=== PATIENT | male | born 1945 | race Caucasian/White ===

== ENCOUNTER 2025-08-29 08:30 | Emergency (ER) | payer OTHER, SELFPAY ==
--- OUTSIDE RECORDS SUMMARY | 2025-08-29 08:35 | XMS_ITS | Clinical Summary ---
Author Organization [facility] Address [address] [place] [address] Phone Care Team Providers Care Precipitator Supervisor Name Role Phone Provider, None Primary Care Provider Unavailabl e Allergies No known active allergies Social History Tobacco Use Types Packs/Day Years Used Date Smoking Tobacco: Former Smokeless Tobacco: Never Sex and Gender Information Value Date Recorded Sex Assigned at Not on file Legal Sex Male 10:57 PM CDT Gender Identity Not on file Sexual Orientation Not on file Last Filed Vital Signs Vital Sign Reading Time Taken Comments Blood Pressure 110/64 01/14/2021 9:39 AM CDT Pulse 70 01/14/2021 9:39 AM CDT Temperature 36.7 C (98 F) 01/14/2021 9:39 AM CDT Respiratory Rate 18 01/14/2021 9:39 AM CDT Oxygen Saturation 95% 01/14/2021 9:39 AM CDT Inhaled Oxygen Concentration - - Weight 102.1 kg (225 lb) 01/14/2021 9:39 AM CDT Height - - Body Mass Index - - Plan of Treatment Health Maintenance Due Date Last Done Comments Hepatitis C Virus (HCV) Screening 1945 TdaP Immunization 1945 Pneumococcal Immunization (5 0+ years) (1 of 1 - PCV) 1993 Zoster Immunization (1 of 2) 1993 Respiratory Syncytial Virus (RSV) Immunization (Adult) (1 - 1-dose 75+ series) 2018 Influenza Immunization (#1) 2025 SARS-COV-2 Immunization (3 - season) 2025 12/12/2021, 06/19/2021 Hepatitis B Immunization Aged Out No longer eligible based on patient's age to complete this topic Human Papillomavirus (HPV) Immunization Aged Out No longer eligible b ased on patient's age to complete this topic Meningococcal Immunization (ACWY) Aged Out No longer eligible b ased on patient's age to complete this topic Rotavirus Immunization Aged Out No lo nger eligible based on patient's age to complete this topic Insurance NETWORK Care Teams Precipitator Supervisor Relationship Specialty Start Date End Date Provider, Jim SMITH PCP - General 01/14/21
--- OUTSIDE RECORDS SUMMARY | 2025-08-29 08:35 | XMS_ITS | Clinical Summary ---
Author Organization [facility] Address [address] [place] [address] Care Team Providers Care Courtroom Deputy Name Role Phone Yohannes Robins MD Primary Care Provider [phone] Allergies Active Allergy Reactions Criticality Noted Date Comments Simvastatin Muscle pain Medium 10/12/2023 Medications fluticasone propionate (FLONASE) 50 mcg/actuation nasal sprayIndication s:Seasonal allergic rhinitis due to pollen Administer 2 sprays into each nostril daily 16 g 11 2 Active oxybutynin XL (DITROPAN-XL) 5 mg 24 hr tablet Take 1 tablet (5 mg total) by mouth daily Active ALPRAZolam (XANAX) 0.25 mg tablet Take 1 tablet (0.25 mg total) by mouth 3 (three) times a day as needed for anxiety Active artificial tears,hypromell ose, 0.3 % drops Administer 1 drop into affected eye(s) daily Active divalproex ER (DEPAKOTE ER) 500 mg 24 hr tablet Take 1 tablet (500 mg total) by mouth daily as needed (patient takes only as needed) Active tamsulosin (FLOMAX) 0.4 mg extended release capsule Take 1 capsule (0.4 mg total) by mouth daily with dinner 30 capsule 4 Active aspirin 81 mg enteric coated tablet Take 1 tablet (81 mg total) by mouth daily 30 tablet 4 Active traMADoL (ULTRAM) 50 mg tablet Take 1 tablet (50 mg total) by mouth every 6 (six) hours as needed for pain 20 tablet 4 Active metoprolol XL (TOPROL-XL) 25 mg extended release tablet Take 3 tablets (75 mg total) by mouth daily 270 tablet 3 4 Active atorvastatin (LIPITOR) 10 mg tablet Take 1 tablet (10 mg total) by mouth nightly 90 tablet 3 4 Active amLODIPine (NORVASC) 5 mg tablet Take 1 tablet (5 mg total) by mouth daily 90 tablet 3 4 Active Active Problems Problem Noted Date Diagnosed Date Syncope and collapse 06/06/2024 Overview (06/15/2024): Due to long pauses with multiple P waves but no QRS complexes. 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 Has a small pocket hematoma postprocedure and that is why Xarelto has been on hold. Assessment & Plan (06/29/2024 4:06 PM CDT): [facility] last week. He thought the pacemaker pocket area looked good and he restarted the patient back on Xarelto. It also looked good on my exam today so he can continue on Xarelto. He will follow-up with me as needed. Assessment & Plan (06/15/2024 3:46 PM CDT): No pain. No wound drainage. No fever. Before restarting Xarelto, let me see him back in 2 weeks. He is in sinus rhythm on my exam today anyway. On top of that, device remote check done just now did not show any atrial fibrillation. All numbers quite good with 16% RA a pacing and 0% RV pacing. Assessment & Plan (06/06/2024 2:40 PM CDT): Showed patient and daughter the long pause that occurred in the hospital. Today's device remote check showed 9% RA pacing and 0% RV pacing. All numbers quite good. I advised him to stay off the Eliquis for another few days as there appears to be a small hematoma in the pocket. He will restart Eliquis Thursday evening and keep me posted if the pocket gets bigger. We will see him back in 6 months if he wishes. Otherwise, he can follow-up with his [facility]. Epilepsy 05/31/2024 Other constipation 05/31/2024 BPH (benign prostatic hyperplasia) 05/31/2024 Primary hypertension 05/31/2024 Dyslipidemia 05/31/2024 Lung nodule 05/31/2024 Pulmonary hypertension 05/31/2024 Cardiac pacemaker 05/30/2024 Leukocytosis 05/26/2024 Chest pain 05/23/2024 Complete heart block 05/22/2024 Chest pain, unspecified type 10/12/2023 Paroxysmal atrial fibrillation 04/15/2023 Sensorineural hearing loss (SNHL) of both ears 0 01/28/2023 Assessment & Plan (01/28/2023 11:24 AM CDT): Avoid ear cleaning techniques Hearing test [facility] Dr[facility] Riky Russo Atrial fibrillation with rapid ventricular respo nse 09/09/2022 Acute hemorrhagic otitis externa of right ear Assessment & Plan (11/20/2021 11:24 AM CDT): Ciprofloxacin 7 drops into EACH EAR, NOT EYE, twice daily for 7 days Call [facility] for [facility] up Recheck ears in 6 months Flonase 2 sprays into each nostril while looking down over the sink, do not sniff in or blow nose after use for at least 30 minutes daily Bilateral impacted cerumen 11/20/2021 Assessment & Plan (01/28/2023 5:03 PM CDT): Avoid ear cleaning techniques Hearing test [facility] Assessment & Plan (07/25/2022 2:24 PM SOCIAL WORK MANAGER): Avoid ear cleaning techniques Follow up in 6 months for ear check Assessment & Plan (11/20/2021 11:24 AM CDT): Avoid ear cleaning techniques Avoid water to ears Seasonal allergic rhinitis due to pollen 022 Assessment & Plan (11/20/2021 11:24 AM CDT): Ciprofloxacin 7 drops into EACH EAR, NOT EYE, twice daily for 7 days Call [facility] for follow up Recheck ears in 6 months Flonase 2 sprays into each nostril while looking down over the sink, do not sniff in or blow nose after use for at least 30 minutes daily Medical History Medical History Date Comments Epilepsy (HCC) Atrial fibrillation (HCC) Family History Medical History Relation Name Comments Heart disease Brother Hypertension Daughter Relation Name Status Comments Brother 2/3 brothers smith ve gotten pacemakers Daughter Social History Tobacco Use Types Packs/Day Years Used Date Smoking Tobacco: Never Smokeless Tobacco: Never Tobacco Cessation:Counseling Given: Not Answered Alcohol Use Standard Drinks/Week Comments Not Currently 0 (1 standard drink = 0.6 oz pur e alcohol) [facility] Utilities Answer Date Recorded In the past 12 months has th e electric, gas, oil, or water company threatened to shut off services in your home? No 05/24/2024 Social Connection and Isolation Panel Answer Date Recorded In a typical week, how many times do you talk on the phone with family, friends, or neighbors? More than three times a week 05/24/2024 How often do you get togethe r with friends or relatives? More than three times a week 05/24/2024 How often do you attend [facility] ch or rastafarian services? Never 05/24/2024 Do you belong to any clubs o r organizations such as confucianist groups, unions, fraternal or athletic groups, or school groups? No 05/24/2024 How often do you attend meet ings of the clubs or organizations you belong to? Never 05/24/2024 Are you , , di vorced, , never , or living with a partner? 05/24/2024 AUDIT-C Answer Date Recorded Q1: How often do you have a drink containing alcohol? Never 05/22/2024 Q2: How many drinks containi ng alcohol do you have on a typical day when you are drinking? Patient does not drink Q3: How often do you have si x or more drinks on one occasion? Never 05/22/2024 Overall Financial Resource Strain (CARDIA) Answe r Date Recorded How hard is it for you to pa y for the very basics like food, housing, medical care, and heating? Not hard at all 05/24/2024 Hunger Vital Sign Answer Date Recorded Within the past 12 months, y ou worried that your food would run out before you got the money to buy more. Never true 05/24/20 24 Within the past 12 months, t he food you bought just didn't last and you didn't have money to get more. Never true 05/24/2024 PRAPARE - Transportation Answer Date Re corded In the past 12 months, has l ack of transportation kept you from medical appointments or from getting medications? No 05/08 In the past 12 months, has l ack of transportation kept you from meetings, work, or from getting things needed for daily living? No 05/24/2024 Housing Stability Vital Sign Answer Tra e Recorded In the last 12 months, was t here a time when you were not able to pay the mortgage or rent on time? No 09/10/2022 Number of Places Lived in the Last Year Not on f ile 09/10/2022 In the last 12 months, was t here a time when you did not have a steady place to sleep or slept in a longterm (including now)? No 09/10/2022 Housing Stability Vital Sign Answer Tra e Recorded In the last 12 months, was t here a time when you were not able to pay the mortgage or rent on time? No 05/24/2024 In the past 12 months, how m any times have you moved where you were living? 0 05/24/2024 At any time in the past 12 m [facility], were you homeless or living in a longterm (including now)? No 05/24/2024 Personal Safety Answer Date Recorded Have you ever been in or are you currently in a harmful physical or emotional relationship or is someone making you feel afraid or unsafe? Denies 05/22/2024 Sex and Gender Information Value Date Recorded Sex Assigned at Not on file Legal Sex Male 9:11 AM SOCIAL WORK MANAGER Gender Identity Not on file Sexual Orientation Not on file Last Filed Vital Signs Vital Sign Reading Time Taken Comments Blood Pressure 125/58 05/31/2024 11:41 AM CDT Pulse 80 05/31/2024 12:00 PM CDT Temperature 36.2 C (97.2 F) 05/31/2024 11:41 AM CDT Respiratory Rate 16 05/31/2024 11:4 1 AM CDT Oxygen Saturation 95% 05/31/2024 11: 41 AM CDT Inhaled Oxygen Concentration - - Weight 91.5 kg (201 lb 11.5 oz) 024 11:57 AM CDT Height 182.9 cm (6' 0.01) 05/27/2024 1 1:57 AM CDT Body Mass Index 27.35 05/27/2024 11:57 AM CDT Plan of Treatment Health Maintenance Due Date Last Done Comments Depression Screening 1945 Hepatitis B Screening 1961 Well Visit 65+ 2008 DTaP/Tdap/Td Vaccine (1 - Tdap) 10/26/2014 5, 03/12/2005 Covid-19 Vaccine (6 - 2024-10 6 season) 2025 06/17/2023, 12/12/2021, 06/19/2021, Additional history exists Influenza Vaccine (#1) 2025 , 06/06/2022, 05/31/2019, Additional history exists Fall Risk Assessment 05/31/2025 05/31/2024 Pneumococcal vaccine 65+ Completed 015, 10/25/2014, 11/08/2003 Zoster Vaccine Completed 07/15/2019, 01/05, 02/16/2009 Medical Devices Implanted Type Area Computer Tester Device Identifier Shelf Expiration Date Model / Serial / Lot Biotronik Inc Endocardial Pacing Lead Promri Solia Jt [id number] - [id number] - [id number] Implanted:Qty: 1 on 05/30/2024 by Kenneth Andrews MD at [facility] Lead Bi[employer]ik Inc 10/07/2024 [id number] / [id number] / Biotronik [employer] Endocardial Pacing Lead Promri Solia T 60 [id number] - [id number] - [id number] Implanted:Qty: 1 on 05/30/2024 by Kenneth Andrews MD at [facility] Lead [employer]ik Inc 10/07/2024 [id number] 81 / [id number] / Biotronik Inc Pacemaker Implantable Amvia Edge Dual Chamb Rate-Responsive [id number] - [id number] - [id number] Implanted:Qty: 1 on 05/30/2024 by Kenneth Andrews MD at [facility] Pacemaker Biotronik Inc 10/07/2025 [id number] / [id number] / Medtronic Inc Tyrx Absorbable Antibacterial Envelope-Large 3.3x2.9in [id number] - [id number] Implanted:Qty: 1 on 05/30/2024 by Kenneth Andrews MD at [facility] Med[employer]onic Inc [id number] / / Insurance MEDICARE [facility] [employer] Address: [address] [place] [address] MEDICARE [facility] OFFICE [facility] CARE [facility] Member Subscriber Plan / Payer (Ef fective 2003-Present) Name:Damian Mcgee Relation to Subscriber:Self Name:Damian Mcgee Payer ID:[id number] Group ID:Not on file Type:OTHER [employer] Address: [facility] [id number] [facility] CARE Advance Directives For more information, please contact: [phone] * Full Code (Latest Code Status on File) Date Activated Date Inactivated Comments 05/22/2024 1:13 PM 05/31/2024 5:45 PM * Full Code Date Activated Date Inactivated Comments 04/15/2023 1:13 PM 04/15/2023 5:47 PM * Full Code Date Activated Date Inactivated Comments 09/09/2022 11:07 AM 09/10/2022 10:42 PM Care Teams Courtroom Deputy Relationship Specialty Start Date End Date Yohannes Robins MD [address] [address] PCP - General 01/04/22
[2025-08-29 08:43] VITALS: BP 112/58; PULSE 82; RESP 16; TEMP 36.9; O2SAT 100
[2025-08-29 09:00] LABS: EDCOVIDSCREEN Positive (Negative); EDINFLUASCREEN Negative (Negative); EDINFLUBSCREEN Negative (Negative)
--- NOTE | 2025-08-29 09:23 | ED_ITS ---
HPI - URI/Sore Throat General Chief Complaint: Upper Respiratory Infection Stated Complaint: fever/chest congestion Time Seen by Provider: 08/29/25 09:05 Source: patient and RN notes reviewed Mode of arrival: ambulatory Limitations: no limitations History of Present Illness HPI Narrative: 80-year-old male patient presents Express Care complaining of upper respiratory symptoms approximately 1 and half weeks. Patient is complaining of tactile fever, cough, chest congestion, runny nose congestion. Patient denies any other upper respiratory symptoms, body aches, chills, nausea vomiting, diarrhea, chest pain, difficulty breathing or any other symptoms. Patient reports a cardiac history. Related Data Home Medications ?Medication ?Instructions ?Recorded ?Confirmed ?Last Taken ?Type apixaban .ROUTE 08/29/25 Unknown His tory furosemide .ROUTE 08/29/25 Unknown His tory metoprolol succinate PO 08/29/25 Unknown History Allergies Allergy/AdvReac Type Severity Reaction Status Date / Time No Known Drug Allergies Allergy Intermediate Unknown Verified 08/29/25 08:57 Review of Systems Review of Systems: CONSTITUTIONAL: Positive for tactile fevers and chills. Negative for sweats. EYES: Denies visual changes, redness, or discharge. ENT: Denies sore throat, or otalgia. Positive for congestion and rhinorrhea. CARDIOVASCULAR: Denies chest pain, palpitations, or edema. RESPIRATORY: Positive for cough. Negative for wheezing or Dyspnea. GASTROINTESTINAL: Denies abdominal pain, nausea, vomiting, or diarrhea. GENITOURINARY: Denies dysuria or hematuria. SKIN: Denies rash or itching. MUSCULOSKELETAL: Denies back pain, joint pain, or myalgia. NEUROLOGIC: Denies headache, numbness, or weakness. PSYCHIATRIC: Denies anxiety or depression. All other systems reviewed are negative, except as documented in HPI. PMFSH Comments At the time of my signature, I reviewed and agree with the nursing past medical, surgical, social, and family history. There is no relevant family history pertinent to the patient complaint. Exam Narrative: GENERAL: This is a well-nourished, well-developed adult, in no apparent distress. They are non ill-appearing, nontoxic appearing. HEAD: normocephalic, atraumatic. EYES: Sclera clear/white. Conjunctiva normal. Vision is grossly intact. Extraocular movements intact EARS: External ears normal, auditory canals clear and without drainage, TMs normal without perforation. Hearing grossly intact. NOSE: External nose normal with no obvious nasal discharge, nasal turbinates erythematous, with rhinorrhea. THROAT: Mucous membranes moist, posterior pharynx erythematous. Uvula midline. PND present. NECK: Neck supple, non-tender without lymphadenopathy, masses or thyromegaly. CARDIOVASCULAR: Regular rate and rhythm without murmurs, gallops, or rubs. RESPIRATORY: Clear to auscultation. Breath sounds equal bilaterally. No wheezes, rales, or rhonchi. Respiratory rate normal, respiratory effort nonlabored, no respiratory distress SKIN: warm, Dry, intact with no suspicious lesions or rash, good texture and turgor. NEURO: awake, alert, and oriented to person, place and time. There were no obvious focal neurologic abnormalities. EXTREMITIES: No joint tenderness, effusion, or edema noted. BACK: Nontender without deformity. Course Course Level of Care: Express Care Visit Vital Signs Vital signs: Vital Signs Temperature 98.5 F 08/29/25 08:43 Pulse Rate 82 08/29/25 08:43 Respiratory Rate 16 08/29/25 08:43 Blood Pressure 112/58 L 08/29/25 08:43 Pulse Oximetry 100 08/29/25 08:43 Oxygen Delivery Room Air 08/29/25 08:43 Temperature 98.5 F 08/29/25 08:43 Pulse Rate 82 08/29/25 08:43 Respiratory Rate 16 08/29/25 08:43 Blood Pressure 112/58 L 08/29/25 08:43 Pulse Oximetry 100 08/29/25 08:43 Oxygen Delivery Room Air 08/29/25 08:43 [facility] Narrative Medical decision making narrative: Rapid COVID positive. Patient has had symptoms greater than 5 days, not a candidate packs of it at this point. Patient's symptoms mild, patient is nontoxic appearing, no apparent distress, no respiratory distress. Vital signs hemodynamically stable. Discussed supportive care. Will send him home with benzonatate tablets for cough. Discussed physical exam findings. Advised supportive measures and signs/symptoms to go to the ER. Pt is appropriate for outpt treatment and f/u. Differential Diagnosis Differential Diagnosis: Differential diagnostic considerations for upper respiratory infection include upper respiratory infection, croup, otitis media, sinusitis, viral infection, bronchitis, influenza, pharyngitis, strep, uvulitis, COVID. Lab Data [facility] Lab Attestation statement: I personally reviewed the patient's lab results. Labs: Lab Results 08/29/25 Range/Units 08:58 POC Influenza A Ag Negative (Negative) POC Influenza B Ag Negative (Negative) POC SARS CoV-2 Ag Positive (Negative) Critical Care Time Critical Care Time Critical Care Time: No Discharge Plan Discharge Clinical Impression: COVID Patient Disposition: Home Condition: Stable Instructions: Antibiotic Form, COVID-19 (Coronavirus Disease 2019) (ED) Additional Instructions: You should avoid crowds until you are fever free for 24 hours without the use of fever reducing medications, or the symptoms are improved Rest. Drink plenty of fluids. You may take ibuprofen 600 mg to 800 mg every 6-8 hours. Do not exceed more than 800 mg of ibuprofen per dose. Do not exceed more than 3200 mg ibuprofen in a day. You may take up to 1000 mg Tylenol every 6-8 hours. Do not exceed 1000 mg per dose, do exceed more than 4000 mg of Tylenol in a day. Recommend azelastine antihistamine spray and Zyrtec for congestion Take benzonatate tablets as needed for cough. Follow up with your primary care provider in 3-5 days Go to the ER for worsening symptoms, chest pains, difficulty breathing, shortness of breath, unable to talk in full sentences, severe weakness, uncontrollable fevers, or any serious concerns Patient Language: Polish Prescriptions: New benzonatate 200 mg capsule 200 mg PO TID PRN (Reason: cough) Qty: 20 0RF No Action apixaban [Eliquis] .ROUTE metoprolol succinate PO furosemide .ROUTE Follow-up/Referrals: [facility] [Primary Care Provider, Medical] Time of Disposition: :19
== END 2025-08-29 09:25 | disposition home or self-care (01) ==
DX: U07.1 COVID-19 (principal); I10 Essential (primary) hypertension; Z95.0 Presence of cardiac pacemaker
CPT/HCPCS: 87426; 87804; 99203; G0463